=== PATIENT | female | born 1980 | race Caucasian/White ===

== ENCOUNTER 2024-05-05 01:28 | Emergency (ER) | payer OTHER, SELFPAY ==
[2024-05-05 01:35] VITALS: BP 159/108
--- NOTE | 2024-05-05 01:56 | ED.GENMED ---
History of Present Illness
General
Chief Complaint: Back Pain
Time Seen by Provider: 05/05/24 01:56
Travel History
Have you had any contact with someone who has COVID-19?: No
Do you have any symptoms of coronavirus? Fever > 100 degrees, chills, cough, shortness of breath, sore throat, loss of taste or smell, muscle aches, or headache?: No
History of Present Illness
History of Present Illness:
HPI: Patient presents with left upper back pain without injury. This started about 2 days ago. She primarily reports pain in the left periscapular region and denies any chest pain or pressure. Flexeril has not helped. The pain worsens when she
takes a breath then. She does not take control.
EXAM:
GENERAL: Well appearing in no distress
HEENT: Moist oral mucosa
CARDIOVASCULAR: No murmurs, normal heart rate, regular rhythm, No chest wall tenderness
BACK: There is rather significant tenderness in the left periscapular musculature
PULMONARY: No respiratory distress, breath sounds are clear and equal
ABDOMEN: Soft with no peritoneal signs, no tenderness
NEUROLOGIC: Excellent strength all extremities, no coordination deficits
PSYCHIATRIC: Appropriate mental status, normal insight and judgement
EXTREMITIES: Nontender, no edema, moves all extremities equally
SKIN: No rash, no lesions
TIME OF INITIAL ENCOUNTER: 2:40 AM
NUMBER AND COMPLEXITY OF PROBLEMS ADDRESSED AT THE ENCOUNTER
� Chronic conditions affecting care: High blood pressure, anxiety/depression
� Acute Exacerbation and/or Progression of Chronic Illness: This is an acute problem
� Differential Diagnosis includes: Musculoskeletal back/chest wall pain, PE, pneumonia, pneumothorax
AMOUNT AND/OR COMPLEXITY OF DATA TO BE REVIEWED AND ANALYZED
� I performed an independent evaluation of and my interpretation is:
EKG: Sinus 73, normal axis, no acute ST abnormality
CT:
X-rays: Chest x-ray personally reviewed and shows no acute abnormality
Laboratory Studies: CBC normal, D-dimer less than 0.27, chemistries unremarkable
Other:
� Review of other/old records: I reviewed records, the patient was taken to the OR a year ago for operative management of severe nosebleed
� Clinical information was obtained by an independent historian: None needed
� Prescriptions/Medications Considered but not given:
� Further testing considered but not performed:
RISK OF COMPLICATIONS AND/OR MORBIDITY OR MORTALITY OF PATIENT MANAGEMENT
� Social determinants of health affecting care: Lives at home
� Discussion with other providers:
� Escalation of care including admission/observation vs risk of discharge considered: Strongly suspect left periscapular musculoskeletal etiology. We have given IV Toradol. Chest x-ray shows no pneumothorax. Lab work including
D-dimer unremarkable. The patient overall feels fairly comfortable with going home. I encouraged continued use of NSAIDs.
Past History
Past History
ED Past Medical History: HTN and Other (Patient has a history of headaches, frequent urinary tract infections, history of diarrhea, anxiety, depression.)
ED Past Surgical History: Other (Patient had her tubes tied, had a D&C, and a miscarriage)
Social History
Tobacco: Non-smoker
Alcohol: None
Personal:
Living: with family
Employment: Employed ([employer])
Family History
Family History: Negative Diabetes, Hypertension or CAD
Phy Exam
Physical Exam
Physical Exam:
See HPI
Course
Orders/Labs/Results
Orders:
Orders
05/05/24 01:38
EKG [Electrocardiogram (*1)] Urgent
Reason for Study: Chest Pain
EKG- Treatment ONCE
05/05/24 02:41
Ketorolac [Toradol] 15 mg IV NOW STA
CR Chest - 2 Views Urgent
Comment:
Reason For Exam: L back pain pleuritic
05/05/24 02:55
Basic Metabolic Panel Urgent
Complete Blood Count/With Diff Urgent
D-Dimer Urgent
Abnormal Lab Results
05/05/24
02:55
Hct 36.8 L %
(37.0-47.0)
MPV 11.4 H fL
(7.4-10.4)
BUN 23 H mg/dl
(7-17)
Glucose 103 H mg/dl
(70-99)
05/05/24 02:55
05/05/24 02:55
Vital Signs
Initial and Last Documented VS:
Initial Vital Signs
Temp Pulse Resp BP Pulse Ox
99.8 F 94 16 159/108 99
05/05/24 01:35 05/05/24 01:35 05/05/24 01:35 05/05/24 01:35 05/05/24 01:35
Last Documented Vital Signs
Temp Pulse Resp BP Pulse Ox
99.8 F 65 16 144/91 98
05/05/24 01:35 05/05/24 02:58 05/05/24 02:58 05/05/24 02:58 05/05/24 02:58
*Critical Care Note
Total Time (30-74mins, 75-104mins- exclusive of procedures): Not Applicable
ED Attending Note
-
Portions of this chart may have been created with voice recognition software.� Occasional wrong word or��sound alike� substitutions may have occurred due to the inherent limitations of voice recognition software.
Discharge Plan
Departure
Prescriptions:
No Action
metoprolol succinate 25 mg tablet extended release 24 hr
25 mg PO HS
escitalopram oxalate [Lexapro] 10 mg Tablet
5 mg PO DAILY
Referrals:
Man Wylie DO [Family Provider] -
Interventions
Interventions:
*Risk Screen - Suicide Last Done: 05/05/24 01:35
*General Assessment Last Done: 05/05/24 01:35
*Neglect/Abuse Screening Last Done: 05/05/24 01:35
ED- Fall Risk Assessment Last Done: 05/05/24 03:03
*ED COVID-19 Vaccine History Last Done: 05/05/24 02:07
ED- Cardiac Assessment Last Done: 05/05/24 03:03
ED-Musculoskeletal Assessment Last Done: 05/05/24 03:03
Discharge Date and Time
Print Language: TURKMEN
[2024-05-05 02:46] VITALS: BMI 28.3
[2024-05-05 02:58] VITALS: BP 144/91
[2024-05-05] MEDS: TORADOL 15 MG IV (02:58)
--- NOTE | 2024-05-05 03:04 | EDRN ---
Pt noted pain L upper back on . Pain worse with deep inspiration. Pt took advil and an old flexeril without pain relief. Pt says she laid down to sleep and was unable to go to sleep tonight because the pain was sharp and constant. Pt
feels best when sitting up straight. Pain radiates across upper back. No cp, sob, abd pain, n/v, dizziness, weakness, urinary symptoms, fever/chills/cough, recent air travel/long car rides, leg pain/swelling.
[2024-05-05 03:15] LABS: % Basophils 1.2 % (0-2); % Eosinophils 1.9 % (0-6); % Immature Granulocytes 0.3 % (0-0.5); % Lymphocytes 29.7 % (20.5-51.1); % Monocytes 6.4 % (1.7-9.3); % Neutrophils 60.5 % (42.2-75.2); Absolute Basophils 0.1 10^3/uL (0-0.2); Absolute Eosinophils 0.1 10^3/uL (0-0.7); Absolute Lymphocytes 2.2 10^3/uL (1.2-3.4); Absolute Monocytes 0.5 10^3/uL (0.1-0.6); Absolute Neutrophils 4.6 10^3/uL (1.4-6.5); Hematocrit 36.8 % (37.0-47.0); Hemoglobin 12.7 g/dL (12.0-16.0); Mean Corp Hgb Conc. 34.5 g/dL (33.0-37.0); Mean Corpuscular Hgb 28.8 pg (27.0-31.0); Mean Corpuscular Volume 83.4 fL (81.0-99.0); Mean Platelet Volume 11.4 fL (7.4-10.4); Nucleated Red Blood Cells % 0 %; Platelet Count 262 10^3/uL (130-400); Red Blood Cell Count 4.41 10^6/uL (4.20-5.40); Red Cell Dist. Width 12.9 % (11.5-14.5); White Blood Cell Count 7.5 10^3/uL (4.8-10.8)
[2024-05-05 03:27] LABS: Blood Urea Nitrogen 23 mg/dl (7-17); Calcium 9.7 mg/dl (8.4-10.2); Carbon Dioxide 22 mmol/L (22-30); Chloride 107 mmol/L (98-107); Estimated Creatinine Clearance 101 ml/min; Glucose 103 mg/dl (70-99); Sodium 139 mmol/L (135-145); eGFR > 60.00
[2024-05-05 03:38] LABS: D-Dimer < 0.27 ug/mlFEU (0.00-0.50)
[2024-05-05 04:27] VITALS: BP 123/85
== END 2024-05-05 04:36 | disposition home or self-care (01) ==
LOC: EMR 01:28
PROVIDERS: EMERGENCY PHYSICIAN Emergency Medicine; FAMILY PHYSICIAN Family Medicine
DX: M54.6 Pain in thoracic spine (principal); I10 Essential (primary) hypertension; F41.9 Anxiety disorder, unspecified; F32.A Depression, unspecified; Z87.440 Personal history of urinary (tract) infections
CPT/HCPCS: 99283; 71046; 80048; 85025; 85379; 93005